=== PATIENT | male | born 1955 | race Caucasian/White ===

== ENCOUNTER 2017-01-08 15:25 | Emergency (ER) | payer OTHER ==
[~2017-01-08] VITALS: Ht 190.5 cm; Wt 161.4 kg
[~2017-01-08 15:25] MED LIST: AMLODIPINE BESYL5 MG PO; ASPIR-TRIN325 M1 PO; DICLOFENAC SODI75 MG PO; FISH OIL 1,0001 EAC7 PO; FLOVENT DISKUS1 DIS2 IH; FOLIC ACID0.4 MG PO; LISINOPRIL40 MG PO; LOPRESSOR100 M1 PO; LYRICA75 MG PO; MELOXICAM7.5 MG PO; MULTIVITAMIN1 EAC2 PO; OXYCONTIN20 MG PO
[2017-01-08 16:07] LABS: HEMATOCRIT 50.6 % (38.0-50.0); MCH 27.1 PG (29.0-34.0); MCHC 32.2 G/DL (30.0-36.0); MCV 84.2 FL (86-99); MEAN PLAT.VOLUME 11.1 uM^3 (9.0-12.4); PLATELET COUNT 213 K/uL (156-360); RBC DIS.WIDTH-CV 13.9 % (11.8-14.6); RBC DIS.WIDTH-SD 42.8 % (39-53); RED BLOOD COUNT 6.01 M/uL (4.00-5.50); WHITE BLOOD COUNT 12.5 K/uL (4.1-10.2)
[2017-01-08 16:11] LABS: PROTHROMBIN TIME 11.4 SEC (10.2-12.9)
[2017-01-08 16:13] LABS: PTT 29.9 SEC (25-37)
[2017-01-08 16:17] LABS: CHLORIDE 103 mEq/L (99-109); POTASSIUM 4.2 mEq/L (3.7-5.4); SODIUM 140 mEq/L (136-147)
[2017-01-08 16:18] LABS: GLUCOSE 109 mg/dL (70-99)
[2017-01-08 16:20] LABS: ANION GAP 11 MEQ/L (2-14)
[2017-01-08 16:22] LABS: GFR ESTIMATE (CALCULATED) > 59 mL/min/
[2017-01-08 16:23] LABS: UREA NITROGEN (BUN) 24 mg/dL (9-23)
[2017-01-08] MEDS ORDERED: PERCOCET 5/31 TABLET PO (18:18)
[2017-01-08 18:28] VITALS: BP 150/86
== END 2017-01-08 18:33 | disposition home or self-care (01) ==
LOC: EME 15:25
PROVIDERS: Physician Assistant
DX: S80.12XA Contusion of left lower leg, initial encounter (principal); I25.2 Old myocardial infarction; I10 Essential (primary) hypertension; W28.XXXA Contact with powered lawn mower, initial encounter; K21.9 Gastro-esophageal reflux disease without esophagitis; Z87.442 Personal history of urinary calculi; Z87.891 Personal history of nicotine dependence
CPT/HCPCS: 73590; 80048; 85027; 85610; 85730; 93971; 99281; 99284

== ENCOUNTER → 2017-12-10 | Outpatient (CLI) | payer OTHER ==
[~2017-12-10] MED LIST changes: +PERCOCET 5/31 TABLET PO
== END | disposition home or self-care (01) ==
LOC: RES 10:31
DX: R06.00 Dyspnea, unspecified (principal)
CPT/HCPCS: 94060; 94726; 94729